=== PATIENT | male | born 1965 | race Caucasian/White ===

== ENCOUNTER 2021-05-09 23:51 | Emergency (ER) | payer OTHER ==
[2021-05-10 01:45] LABS: HEMOGLOBIN 15.3 gm/dl (14.0-17.5); RED BLOOD COUNT 5.15 M/UL (4.20-5.50); WHITE BLOOD COUNT 8.6 K/UL (4.5-11.0)
[2021-05-10 02:47] LABS: BUN/CREATININE RATIO 16 (0-10)
[2021-05-10] MEDS ORDERED: IBUPROFEN800 MG PO (04:15)
[2021-05-10] MEDS ORDERED: CYCLOBENZAPRINE5 MG PO (04:15)
== END 2021-05-10 04:36 | disposition home or self-care (01) ==
LOC: ER1 23:51
PROVIDERS: Emergency Medicine
DX: S30.0XXA Contusion of lower back and pelvis, initial encounter (principal); I10 Essential (primary) hypertension; E78.00 Pure hypercholesterolemia, unspecified; E11.9 Type 2 diabetes mellitus without complications; W19.XXXA Unspecified fall, initial encounter
CPT/HCPCS: 71260; 80053; 85025; 96374; 96375; 99284; J1885; J2405; J3010; Q9967